=== PATIENT | male | born 1950 | race Hispanic/Latino ===

== ENCOUNTER 2017-02-07 07:26 | Observation (INO) | payer MEDICARE ==
[2017-02-07 09:05] LABS: Alanine Aminotransferase 9 units/L (7-56); Albumin 3.1 g/dL (3.9-5); Albumin/Globulin Ratio 1.1 %; Alkaline Phosphatase 52 units/L (35-129); Anion Gap 15 mmol/L; BUN/Creatinine Ratio 8.88; Bilirubin,Total 0.4 mg/dL (0.1-1.2); Blood Urea Nitrogen 8 mg/dL (9-20); Calcium 8.6 mg/dL (8.4-10.2); Carbon Dioxide 23 mmol/L (22-30); Chloride 106.2 mmol/L (98-107); Glucose 95 mg/dL (75-100); Potassium 3.9 mmol/L (3.6-5.0); Sodium 140 mmol/L (137-145)
[2017-02-07 09:06] LABS: Basophils % (Auto) 0.4 % (0.0-1.8); Hematocrit 36.9 % (35.5-45.6); Hemoglobin 12.2 gm/dl (11.8-15.2); Mean Corpuscular HGB Conc 33 % (32-34); Mean Corpuscular Hemoglobin 30 pg (28-32); Mean Corpuscular Volume 92 fl (84-94); Platelet Count 206 K/mm3 (140-440); Red Blood Count 4.03 M/mm3 (3.65-5.03); Red Cell Distribution Width 13.7 % (13.2-15.2); White Blood Count 9.1 K/mm3 (4.5-11.0)
[2017-02-07 09:17] LABS: INR 0.97 (0.87-1.13)
[2017-02-07 09:18] LABS: Partial Thromboplastin Time 34.3 Sec. (24.2-36.6)
[2017-02-07 09:23] LABS: Bilirubin,Direct < 0.2 mg/dL (0-0.2)
[2017-02-07] MEDS ORDERED: HEPARIN 10,000 UNITS/10 ML ONE (12:34)
[2017-02-07] MEDS ORDERED: HEPARIN/NS 5000 UNIT/500ML(CATH LAB) 500 ML IR ONE (12:38)
[2017-02-07] MEDS ORDERED: XYLOCAINE 1%/ EPI 1:100,000 INFILTRATI ONE (12:38)
--- NOTE | 2017-02-07 12:43 | Emergency Department Report ---
ED General Adult HPI - General Chief complaint: Pain General Stated complaint: PAIN IN GROIN Time Seen by Provider: 02/07/17 07:52 Source: patient, EMS Mode of arrival: Stretcher Limitations: No Limitations - History of Present Illness Initial comments: The patient is a 66 year old man who is status post PCI to the left diagonal artery by Dr. Guillaume on 02/04/2017. On 02/06/2017 he was found to have a right profunda fistula that was stented and occluded by Dr. Andres. This morning he awoke with swelling of his left groin. The patient presume this was secondary to a hernia. He is status post herniorrhaphy in the past. However upon examination it was clear that his left groin swelling was likely due to a pseudoaneurysm. Therefore an emergency arterial Doppler was ordered. The patient was not complaining of any significant pain. He stated that he didn't have a bowel movement today but he had not been nauseated or vomiting he denied fever or chills. He denied shortness breath or general weakness. -: Gradual, hour(s) Location: left (groin but not complaining of pain just swelling) Radiation: non-radiation Severity scale (0 -10): 0 Consistency: constant Improves with: none Worsens with: none Associated Symptoms: denies other symptoms - Related Data Previous Rx's Medication Instructions Recorded Last Taken Type Aspirin EC [Aspirin Enteric Coated 81 mg PO QDAY #30 tablet. 02/06/17 Unknown Rx TAB] AtorvaSTATin [Lipitor] 40 mg PO QHS #30 tablet 02/06/17 Unknown Rx Azithromycin [Zithromax TAB] 250 mg PO QDAY #3 tablet 02/06/17 Unknown Rx Clopidogrel [Plavix] 75 mg PO QDAY #30 tablet 02/06/17 Unknown Rx Lisinopril [Zestril TAB] 5 mg PO QDAY #30 tablet 02/06/17 Unknown Rx Metoprolol Xl [Metoprolol 25 mg PO QDAY #30 tablet 02/06/17 Unknown Rx SUCCINATE ER TAB] Pantoprazole [Protonix TAB] 40 mg PO QDAY #30 tablet 02/06/17 Unknown Rx Allergies Allergy/AdvReac Type Severity Reaction Status Date / Time erythromycin base Allergy Hives Verified 02/04/17 09:38 ED Review of Systems ROS: Stated complaint: PAIN IN GROIN Other details as noted in HPI Constitutional: denies: chills, fever Eyes: denies: eye pain, eye discharge, vision change ENT: denies: ear pain, throat pain Respiratory: denies: cough, shortness of breath, wheezing Cardiovascular: denies: chest pain, palpitations Endocrine: no symptoms reported Gastrointestinal: denies: abdominal pain, nausea, diarrhea Genitourinary: denies: urgency, dysuria Musculoskeletal: as per HPI. denies: back pain, joint swelling, arthralgia Skin: denies: rash, lesions Neurological: denies: headache, weakness, paresthesias Psychiatric: denies: anxiety, depression Hematological/Lymphatic: denies: easy bleeding, easy bruising ED Past Medical Hx - Past Medical History Previous Medical History?: Yes Hx Hypertension: Yes Hx Heart Attack/AMI: Yes Hx GERD: Yes Hx Headaches / Migraines: Yes Hx Kidney Stones: Yes Hx Asthma: Yes Additional medical history: prostate, CAD with mid diagonal heart stent - Surgical History Past Surgical History?: Yes Hx Coronary Stent: Yes Additional Surgical History: 3 hernia repairs - Social History Smoking Status: Current Every Day Smoker Substance Use Type: Alcohol, Prescribed - Medications Home Medications: Home Medications Medication Instructions Recorded Confirmed Last Taken Type Aspirin EC [Aspirin Enteric Coated 81 mg PO QDAY #30 tablet. 02/06/17 Unknown Rx TAB] AtorvaSTATin [Lipitor] 40 mg PO QHS #30 tablet 02/06/17 02/07/17 Unknown Rx Azithromycin [Zithromax TAB] 250 mg PO QDAY #3 tablet 02/06/17 02/07/17 Unknown Rx Clopidogrel [Plavix] 75 mg PO QDAY #30 tablet 02/06/17 02/07/17 Unknown Rx Lisinopril [Zestril TAB] 5 mg PO QDAY #30 tablet 02/06/17 02/07/17 Unknown Rx Metoprolol Xl [Metoprolol 25 mg PO QDAY #30 tablet 02/06/17 02/07/17 Unknown Rx SUCCINATE ER TAB] Pantoprazole [Protonix TAB] 40 mg PO QDAY #30 tablet 02/06/17 02/07/17 Unknown Rx ED Physical Exam - General Limitations: No Limitations General appearance: alert, in no apparent distress - Head Head exam: Present: atraumatic, normocephalic - Eye Eye exam: Present: normal appearance. Absent: scleral icterus, conjunctival injection - ENT ENT exam: Present: normal exam, mucous membranes moist - Neck Neck exam: Present: normal inspection. Absent: tenderness - Respiratory Respiratory exam: Present: normal lung sounds bilaterally. Absent: respiratory distress - Cardiovascular Cardiovascular Exam: Present: regular rate, normal rhythm. Absent: systolic murmur, diastolic murmur, rubs, gallop - GI/Abdominal GI/Abdominal exam: Present: soft, normal bowel sounds. Absent: distended, tenderness, guarding, rebound, rigid - Rectal Rectal exam: Present: deferred - Extremities Exam Extremities exam: Present: other (the right groin has a good pulse no thrill and no swelling. Dorsalis pedis and posterior tibial pulses are present bilaterally. There is swelling of the left groin which I believe is consistent with a pseudoaneurysm.) - Back Exam Back exam: Present: normal inspection - Neurological Exam Neurological exam: Present: alert, oriented X3, CN II-XII intact. Absent: motor sensory deficit - Psychiatric Psychiatric exam: Present: normal affect, normal mood - Skin Skin exam: Present: warm, dry, intact, normal color. Absent: rash ED Course Vital Signs 02/07/17 02/07/17 02/07/17 07:37 07:40 07:48 Temperature 98.5 F Pulse Rate 65 60 62 Respiratory 18 12 13 Rate Blood Pressure 156/95 Blood Pressure 145/92 [Left] O2 Sat by Pulse 97 100 98 Oximetry - Reevaluation(s) Reevaluation #1: The spindle carver called me to inform me that there was a large left pseudoaneurysm. VASCULAR LAB.PRELIMINARY REPORT.BLE ARTERIAL DUPLEX DONE. TECHNICALLY DIFFICULT/ LIMITED DUE TO LT.GROIN EDEMA.EVIDENCE OF PSEUDOANEURYSM COMING OUT OF THE LT.EXTERNAL ILIAC ARTERY MEASURING 1.61CM. X1.85 CM. IN DIAMETER.NECK DIFFICULT TO VISUALIZED.MULTIPHASIC WAVEFORMS OBTAINED THROUGHOUT VESSELS INTERROGATED EXCEPT FOR MONOPHASIC WAVEFORMS OBTAINED IN THE LT.ROSALEE AND LT.DPA. 02/07/17 12:45 Dr. Fernandez was informed. Initially he suggested a CTA. However, when he was able to review the study he called in the cath team. The patient remained nothing by mouth and hemodynamically stable in the emergency department. Reevaluation #2: I discussed the admission status of this patient with Dr. Jim. He stated that at the end of the procedure he will decide whether the patient should be observed overnight. 02/07/17 12:48 ED Medical Decision Making - Lab Data Result diagrams: 02/07/17 08:29 02/07/17 08:29 Laboratory Results - last 24 hr 02/07/17 02/07/17 02/07/17 08:29 08:29 08:29 WBC 9.1 RBC 4.03 Hgb 12.2 Hct 36.9 MCV 92 MCH 30 MCHC 33 RDW 13.7 Plt Count 206 Lymph % (Auto) 14.9 [place] % (Auto) 9.1 H Eos % (Auto) 3.0 Baso % (Auto) 0.4 Lymph # 1.4 Gregg # 0.8 Eos # 0.3 Baso # 0.0 Seg Neutrophils % 72.6 H Seg Neutrophils # 6.6 PT 12.8 INR 0.97 APTT 34.3 Sodium 140 Potassium 3.9 Chloride 106.2 Carbon Dioxide 23 Anion Gap 15 BUN 8 L Creatinine 0.9 Estimated GFR > 60 BUN/Creatinine Ratio 8.88 Glucose 95 Calcium 8.6 Total Bilirubin 0.4 Direct Bilirubin < 0.2 AST 24 ALT 9 Alkaline Phosphatase 52 Total Protein 6.0 L Albumin 3.1 L Albumin/Globulin Ratio 1.1 Blood Type Antibody Screen 02/07/17 08:29 WBC RBC Hgb Hct MCV MCH MCHC RDW Plt Count Lymph % (Auto) [place] % (Auto) Eos % (Auto) Baso % (Auto) Lymph # [place] # Eos # Baso # Seg Neutrophils % Seg Neutrophils # PT INR APTT Sodium Potassium Chloride Carbon Dioxide Anion Gap BUN Creatinine Estimated GFR BUN/Creatinine Ratio Glucose Calcium Total Bilirubin Direct Bilirubin AST ALT Alkaline Phosphatase Total Protein Albumin Albumin/Globulin Ratio Blood Type A POSITIVE Antibody Screen Negative - Radiology Data Radiology results: report reviewed Critical care attestation.: If time is entered above; I have spent that time in minutes in the direct care of this critically ill patient, excluding procedure time. ED Disposition Clinical Impression: Pseudoaneurysm of left femoral artery Disposition: OP ADMITTED IP TO THIS HOSP Is pt being admited?: Yes Does the pt Need Aspirin: No (per vascular) Condition: Stable Time of Disposition: 12:48
[2017-02-07] MEDS ORDERED: ANCEF/STERILE WATER 2 GM/20 ML 2 GM/20 ML SYRINGE IV ONE (13:14)
[2017-02-07] MEDS ORDERED: NACL 0.9% 500 ML 500 ML ONE (13:14)
[2017-02-07] MEDS ORDERED: ZOFRAN ONE (13:22)
[2017-02-07] MEDS: SUBLIMAZE ONE ×2 (13:30→13:55)
[2017-02-07] MEDS: VERSED ONE ×2 (13:30→13:55)
[2017-02-07] MEDS ORDERED: NORCO 5/325 PO PRN (14:10)
[2017-02-07] MEDS ORDERED: ZOFRAN IV PRN (14:15)
[2017-02-07] MEDS ORDERED: TYLENOL PO PRN (14:15)
[2017-02-07] MEDS ORDERED: DULCOLAX PR PRN (14:15)
[2017-02-07] MEDS ORDERED: MILK OF MAGNESIA PO PRN (14:15)
--- NOTE | 2017-02-07 14:45 | Operative Report ---
Operative Report Operative Report: Date of procedure: 02/07/2017 Pre-operative diagnosis: 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 Post-operative diagnosis: Same Procedure name(s): 1. Ultrasound-guided of the right common femoral artery access 2. Aortogram. 3. Selective contralateral cannulation of the left common femoral artery. 4. Left lower extremity angiogram. 5. Placement of 10 x 38 Icast stent graft in the left distal external iliac/ proximal common femoral artery. 6. Radiologic supervision and interpretation. 7. Closure of the right common femoral artery with proglide device achieving instant hemostasis. Surgeon: Roque Fernandez MD, RPVI Ice Scraper: None Anesthesia: Local Findings 1. 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 2. Complete exclusion of the aneurysm after the stent placement. 3. No evidence of significant arterial occlusive disease in the aorta or iliac arteries. 4. Patent stent in the profunda. 5. Successful closure of the right common femoral artery with instant hemostasis Disposition: The recovery Indications: Large false aneurysm in the distal external iliac/common proximal right femoral artery. Procedure The patient was brought to the Metal Drill Press Operator and laid on the table in supine position. Right groin was infiltrated with 1% lidocaine under ultrasound guidance the right common femoral artery was successfully accessed using a micropuncture needle. Micropuncture wire was advanced without resistance under fluoroscopic guidance. Micropuncture introducer was placed. The long Bentson wire was advanced into the aorta. The 5 Occ[place] sheath was placed. The Sos Omni flush catheter was placed into the distal infrarenal aorta. Aortogram was performed. The false aneurysm was visualized level of the distal external iliac /proximal common femoral arteries. The contralateral cannulation was achieved using a glide advantage wire and the catheter. The wire was brought down into the SFA. The catheter and a 5 [place]itan sheath were removed and upsized to a 7 x 45 cm sheath. The angiogram was performed. The false aneurysm was marked. An 8 mm balloon was inflated over the area of the aneurysm for 3 minutes. Post- balloon inflation the angiogram showed persistent large false aneurysm. A 10 x 38 Icast stent was placed at the level of the left distal external/common proximal femoral arteries and deployed with balloon inflation. Postplacement the false aneurysm was completely excluded. The sheath was brought back to the level of the right external iliac artery and the angiogram was performed. Patient was a candidate for a closure device. The right common femoral artery was successfully closed using Proglide device. Patient tolerated procedure well was transferred to the recovery room in stable condition.
--- NOTE | 2017-02-07 14:51 | History and Physical Report ---
History of Present Illness Date of examination: 02/07/17 History of present illness: 66-year-old gentleman admitted to the hospital with a large swelling above the left groin. His ultrasound showed a large false aneurysm at the level of the external iliac artery. Patient had undergone a cardiac catheterization last week for acute infarct. The access was through the right groin. Patient developed an AV fistula from the profunda to a common femoral vein. The fistula was repaired endovascularly but Dr. Andres by placing a stent in the profunda. He used a left groin for access. Patient was discharged without incident. He returns today with a new problem. Past History Past Medical History: acute [place] (recent), CAD, hypertension, hyperlipidemia Past Surgical History: Other (cardiac catheterization via right groin, endovascular repair of right groin AV fistula in her left groin approach) Social history: smoking Family history: no significant family history Medications and Allergies Allergies Allergy/AdvReac Type Severity Reaction Status Date / Time erythromycin base Allergy Hives Verified 02/04/17 09:38 Home Medications Medication Instructions Recorded Confirmed Last Taken Type Aspirin EC [Aspirin Enteric Coated 81 mg PO QDAY #30 tablet. 02/06/17 Unknown Rx TAB] AtorvaSTATin [Lipitor] 40 mg PO QHS #30 tablet 02/06/17 02/07/17 Unknown Rx Azithromycin [Zithromax TAB] 250 mg PO QDAY #3 tablet 02/06/17 02/07/17 Unknown Rx Clopidogrel [Plavix] 75 mg PO QDAY #30 tablet 02/06/17 02/07/17 Unknown Rx Lisinopril [Zestril TAB] 5 mg PO QDAY #30 tablet 02/06/17 02/07/17 Unknown Rx Metoprolol Xl [Metoprolol 25 mg PO QDAY #30 tablet 02/06/17 02/07/17 Unknown Rx SUCCINATE ER TAB] Pantoprazole [Protonix TAB] 40 mg PO QDAY #30 tablet 02/06/17 02/07/17 Unknown Rx Active Meds: Active Medications Acetaminophen (Tylenol) 650 mg PO Q4H PRN PRN Reason: Pain MILD(1-3)/Fever >100.5/TALAVERA Acetaminophen/Hydrocodone Bitart ([place] 5/325) 1 each PO Q4H PRN PRN Reason: Pain, Moderate (4-6) Aspirin (Halfprin Ec) 81 mg PO QDAY JUAN A Atorvastatin Calcium (Lipitor) 40 mg PO QHS JUAN A Bisacodyl (Dulcolax) 10 mg [place] QDAY PRN PRN Reason: Constipation unrelieved by MOM Clopidogrel Bisulfate (Plavix) 75 mg PO QDAY [facility] Sodium Chloride (Nacl 0.45% 1000 Ml) 1,000 mls @ 75 mls/hr IV DIRECT JUAN A Stop: 02/08/17 04:19 Lisinopril (Zestril) 5 mg PO QDAY JUAN A Magnesium Hydroxide (Milk Of Magnesia) 30 ml PO Q4H PRN PRN Reason: Constipation Metoprolol Succinate (Toprol Xl) 25 mg PO QDAY [facility] Ondansetron HCl (Zofran) 4 mg IV Q8H PRN PRN Reason: N/V unrelieved by Reglan Pantoprazole Sodium (Protonix) 40 mg PO QDAY [facility] Review of Systems Cardiovascular: no chest pain, no orthopnea Respiratory: no cough, no congestion Gastrointestinal: nausea Genitourinary Male: no dysuria Integumentary: deferred Hematologic/Lymphatic: easy bruising Exam - Constitutional Vitals: Temp Pulse Resp BP Pulse Ox 98.5 F 59 L 13 162/78 97 02/07/17 07:37 02/07/17 09:41 02/07/17 09:41 02/07/17 12:40 02/07/17 12:40 General appearance: Present: mild distress - EENT Eyes: Present: PERRL - Neck Neck: Present: supple - Respiratory Respiratory effort: normal Respiratory: bilateral: CTA - Cardiovascular Rhythm: regular - Extremities Extremities: no ischemia Extremity abnormal: other ( swelling at the left groin) - Abdominal General gastrointestinal: Present: deferred - Rectal Rectal Exam: deferred Results - Labs CBC & Chem 7: 02/07/17 08:29 02/07/17 08:29 Labs: Abnormal lab results 02/07/17 02/07/17 Range/Units 08:29 08:29 [place] % (Auto) 9.1 H (0.0-7.3) % Seg Neutrophils % 72.6 H (40.0-70.0) % BUN 8 L (9-20) mg/dL Total Protein 6.0 L (6.3-8.2) g/dL Albumin 3.1 L (3.9-5) g/dL Assessment and Plan Large false aneurysm diagnosed by ultrasound at the level of the distal left external iliac/proximal left common femoral artery. I believe this false aneurysm is too high to inject safely. It would require stent graft to exclude. Plan: We'll take the patient to the [employer] [facility] Operator for a stent placement. We'll admitted postoperatively for observation. We'll consult cardiology and hospitalist for cardiac and medical management. Repeat ultrasound in a.m.
--- NOTE | 2017-02-07 14:58 | Vascular Lab Report ---
LOWER EXTREMITY ARTERIAL DUPLEX: REASON FOR EXAM: Left groin swelling. COMMENTS ON THE RIGHT: Triphasic waveforms are seen proximally. Biphasic waveforms are seen distally. No significant velocity gradients are identified. No focal significant plaque is identified. Findings are consistent with normal perfusion. Findings are consistent with the ability to heal distal wounds. COMMENTS ON THE LEFT: Biphasic waveforms are seen proximally. Biphasic waveforms are seen distally. No significant velocity gradients are identified. A large false aneurysm is noted at the level of the external iliac artery.. Findings are consistent with normal perfusion. Findings are consistent with the ability to heal distal wounds. IMPRESSION: RIGHT: Essentially normal arterial flow. LEFT:False aneurysm at the level of the external iliac artery..
[2017-02-07] MEDS ORDERED: NACL 0.45% 1000 ML 1,000 ML IV SCH (15:00)
--- NOTE | 2017-02-07 15:02 | Vascular Lab Report ---
MISCELLANEOUS VESSEL IDENTIFICATION: COMMENTS ON THE SCAN: The right common femoral artery was identified and under real-time ultrasound guidance was cannulated. IMPRESSION: Successful ultrasound guided arterial cannulation.
--- NOTE | 2017-02-07 15:49 | Consultation ---
History of Present Illness - Reason for Consult Consult date: 02/07/17 Requesting physician: JENNIFER WIGGINS - History of Present Illness 66 YO Male with HTN, CAD, HLD, CA, PVD presents for evaluation. Pt states that he has experienced pain and discomfort in his left groin for the past 3 days. Pt symptoms have gotten progressively worse over the past 12 hours., Pt denies fever, chills, CP, palpitations, NVD, recent ill contacts, prolonged immobility/ travel, individua/family history of DVt/PE, productive cough, hemoptysis,or skin rashes. Consult placed for medical management. Pt seen and evaluated in ED and found to have Left groin false aneurysm. Vascular surgery team consulted. Past History Past Medical History: acute [place] (recent), CAD, hypertension, hyperlipidemia Past Surgical History: Other (cardiac catheterization via right groin, endovascular repair of right groin AV fistula in her left groin approach) Social history: smoking Family history: no significant family history Medications and Allergies Allergies Allergy/AdvReac Type Severity Reaction Status Date / Time erythromycin base Allergy Hives Verified 02/04/17 09:38 Home Medications Medication Instructions Recorded Confirmed Last Taken Type Aspirin EC [Aspirin Enteric Coated 81 mg PO QDAY #30 tablet. 02/06/17 Unknown Rx TAB] AtorvaSTATin [Lipitor] 40 mg PO QHS #30 tablet 02/06/17 02/07/17 Unknown Rx Azithromycin [Zithromax TAB] 250 mg PO QDAY #3 tablet 02/06/17 02/07/17 Unknown Rx Clopidogrel [Plavix] 75 mg PO QDAY #30 tablet 02/06/17 02/07/17 Unknown Rx Lisinopril [Zestril TAB] 5 mg PO QDAY #30 tablet 02/06/17 02/07/17 Unknown Rx Metoprolol Xl [Metoprolol 25 mg PO QDAY #30 tablet 02/06/17 02/07/17 Unknown Rx SUCCINATE ER TAB] Pantoprazole [Protonix TAB] 40 mg PO QDAY #30 tablet 02/06/17 02/07/17 Unknown Rx Active Meds: Active Medications Acetaminophen (Tylenol) 650 mg PO Q4H PRN PRN Reason: Pain MILD(1-3)/Fever >100.5/[place] Acetaminophen/Hydrocodone Bitart ([place] 5/325) 1 each PO Q4H PRN PRN Reason: Pain, Moderate (4-6) Aspirin (Halfprin Ec) 81 mg PO QDAY JUAN A Atorvastatin Calcium (Lipitor) 40 mg PO QHS JUAN A Bisacodyl (Dulcolax) 10 mg [place] QDAY PRN PRN Reason: Constipation unrelieved by MOM Clopidogrel Bisulfate (Plavix) 75 mg PO QDAY [facility] Sodium Chloride (Nacl 0.45% 1000 Ml) 1,000 mls @ 75 mls/hr IV DIRECT JUAN A Stop: 02/08/17 04:19 Lisinopril (Zestril) 5 mg PO QDAY JUAN A Magnesium Hydroxide (Milk Of Magnesia) 30 ml PO Q4H PRN PRN Reason: Constipation Metoprolol Succinate (Toprol Xl) 25 mg PO QDAY JUAN A Ondansetron HCl (Zofran) 4 mg IV Q8H PRN PRN Reason: N/V unrelieved by Reglan Pantoprazole Sodium (Protonix) 40 mg PO QDAY [facility] Exam - Constitutional Vitals: Temp Pulse Resp BP Pulse Ox 98.5 F 59 L 13 162/78 97 02/07/17 07:37 02/07/17 09:41 02/07/17 09:41 02/07/17 12:40 02/07/17 12:40 Results - Labs CBC & Chem 7: 02/07/17 08:29 02/07/17 08:29 Labs: Abnormal lab results 02/07/17 02/07/17 Range/Units 08:29 08:29 [place] % (Auto) 9.1 H (0.0-7.3) % Seg Neutrophils % 72.6 H (40.0-70.0) % BUN 8 L (9-20) mg/dL Total Protein 6.0 L (6.3-8.2) g/dL Albumin 3.1 L (3.9-5) g/dL Assessment and Plan - Patient Problems (1) HTN (hypertension) Current Visit: Yes Status: Acute Qualifiers: Hypertension type: H Plan to address problem: monitor BP q shift, continue current therapy, (2) HLD (hyperlipidemia) Current Visit: Yes Status: Acute Qualifiers: Hyperlipidemia type: H Plan to address problem: continue statin, (3) PVD (peripheral vascular disease) Current Visit: Yes Status: Acute Plan to address problem: S/P vascular intervention, continue current therapy as per vascular service. (4) Pseudoaneurysm of left femoral artery Current Visit: Yes Status: Acute Plan to address problem: S/P vascular surgery repair, dressing in place, CDI. (5) DVT prophylaxis Current Visit: Yes Status: Acute
[2017-02-08 07:37] LABS: Basophils % (Auto) 0.6 % (0.0-1.8); Eosinophils % (Auto) 5.2 % (0.0-4.3); Hematocrit 33.7 % (35.5-45.6); Hemoglobin 11.2 gm/dl (11.8-15.2); Mean Corpuscular HGB Conc 33 % (32-34); Mean Corpuscular Hemoglobin 30 pg (28-32); Mean Corpuscular Volume 91 fl (84-94); Platelet Count 215 K/mm3 (140-440); Red Blood Count 3.69 M/mm3 (3.65-5.03); Red Cell Distribution Width 13.9 % (13.2-15.2); White Blood Count 8.1 K/mm3 (4.5-11.0)
[2017-02-08 07:58] LABS: Anion Gap 14 mmol/L; BUN/Creatinine Ratio 7.77; Blood Urea Nitrogen 7 mg/dL (9-20); Calcium 8.2 mg/dL (8.4-10.2); Carbon Dioxide 24 mmol/L (22-30); Chloride 103.9 mmol/L (98-107); Glucose 98 mg/dL (75-100); Potassium 4.1 mmol/L (3.6-5.0); Sodium 138 mmol/L (137-145)
[2017-02-08 08:09] VITALS: BP 124/78
[2017-02-08] MEDS ORDERED: PLAVIX PO SCH (10:00)
[2017-02-08] MEDS ORDERED: TOPROL XL PO SCH (10:00)
[2017-02-08] MEDS ORDERED: PROTONIX PO SCH (10:00)
[2017-02-08] MEDS ORDERED: HALFPRIN EC PO SCH (10:00)
[2017-02-08] MEDS ORDERED: ZESTRIL PO SCH (10:00)
--- NOTE | 2017-02-08 10:58 | Short Stay Summary ---
Short Stay Documentation - History H&P: dictated Past Medical History: acute [place] (recent), CAD, hypertension, hyperlipidemia Past Surgical History: Other (cardiac catheterization via right groin, endovascular repair of right groin AV fistula in her left groin approach) Social history: smoking - Allergies and Medications Current Medications: Allergies erythromycin base Allergy (Verified 02/04/17 09:38) Hives Home Medications Medication Instructions Recorded Confirmed Last Taken Type Aspirin EC [Aspirin Enteric Coated 81 mg PO QDAY #30 tablet.dr 02/06/17 Unknown Rx TAB] AtorvaSTATin [Lipitor] 40 mg PO QHS #30 tablet 02/06/17 02/07/17 Unknown Rx Azithromycin [Zithromax TAB] 250 mg PO QDAY #3 tablet 02/06/17 02/07/17 Unknown Rx Clopidogrel [Plavix] 75 mg PO QDAY #30 tablet 02/06/17 02/07/17 Unknown Rx Lisinopril [Zestril TAB] 5 mg PO QDAY #30 tablet 02/06/17 02/07/17 Unknown Rx Metoprolol Xl [Metoprolol 25 mg PO QDAY #30 tablet 02/06/17 02/07/17 Unknown Rx SUCCINATE ER TAB] Pantoprazole [Protonix TAB] 40 mg PO QDAY #30 tablet 02/06/17 02/07/17 Unknown Rx Active Medications Acetaminophen (Tylenol) 650 mg PO Q4H PRN PRN Reason: Pain MILD(1-3)/Fever >100.5/[place] Acetaminophen/Hydrocodone Bitart ([place] 5/325) 1 each PO Q4H PRN PRN Reason: Pain, Moderate (4-6) Aspirin (Halfprin Ec) 81 mg PO QDAY [facility] Last Admin: 02/08/17 09:40 Dose: 81 mg Atorvastatin Calcium (Lipitor) 40 mg PO QHS [facility] Last Admin: 02/07/17 21:18 Dose: 40 mg Bisacodyl (Dulcolax) 10 mg [place] QDAY PRN PRN Reason: Constipation unrelieved by MOM Clopidogrel Bisulfate (Plavix) 75 mg PO QDAY [facility] Last Admin: 02/08/17 09:41 Dose: 75 mg Lisinopril (Zestril) 5 mg PO QDAY [facility] Last Admin: 02/08/17 09:40 Dose: 5 mg Magnesium Hydroxide (Milk Of Magnesia) 30 ml PO Q4H PRN PRN Reason: Constipation Metoprolol Succinate (Toprol Xl) 25 mg PO QDAY [facility] Last Admin: 02/08/17 09:39 Dose: 25 mg Ondansetron HCl (Zofran) 4 mg IV Q8H PRN PRN Reason: N/V unrelieved by Reglan Pantoprazole Sodium (Protonix) 40 mg PO QDAY [facility] Last Admin: 02/08/17 09:41 Dose: 40 mg - Physical exam Extremities: no ischemia - Brief post op/procedure progress note Procedure: Pre-operative diagnosis: 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 Post-operative diagnosis: Same Procedure name(s): 1. Ultrasound-guided of the right common femoral artery access 2. Aortogram. 3. Selective contralateral cannulation of the left common femoral artery. 4. Left lower extremity angiogram. 5. Placement of 10 x 38 Icast stent graft in the left distal external iliac/ proximal common femoral artery. 6. Radiologic supervision and interpretation. 7. Closure of the right common femoral artery with proglide device achieving instant hemostasis. Surgeon: Roque Fernandez MD, RPVI Building Maintenance Technician: None Anesthesia: Local Findings 1. 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 2. Complete exclusion of the aneurysm after the stent placement. 3. No evidence of significant arterial occlusive disease in the aorta or iliac arteries. 4. Patent stent in the prof[place]. 5. Successful closure of the right common femoral artery with instant hemostasis Disposition: The recover - Disposition Condition at discharge: Good Disposition: DISCHARGED TO HOME OR SELFCARE Short Stay Discharge Plan Activity: advance as tolerated, other (no heavy lifting for 2 weeks) Weight Bearing Status: Full Weight Bearing Diet: regular Wound: open to air Additional Instructions: Follow-up with [facility] vascular as scheduled Follow up with: PRIMARY CAREMD [Primary Care Provider] - 3-5 Days
--- NOTE | 2017-02-08 11:27 | Progress Note ---
Assessment and Plan Assessment and plan: Pseudoaneurysm distal external iliac artery, s/p angiogram and stent placement. Procedure was done yesterday and he was monitored overnight. Likely going home today. Coronary artery disease status post myocardial infarction. Stable. No chest pain Hypertension. BP stable. Hyperlipidemia Full CODE STATUS History Interval history: no pain on legs Hospitalist Physical - Physical exam Narrative exam: General: Not in acute distress HEENT: Normocephalic, atraumatic Neck: supple, no JVD Lungs: Clear to auscultation bilaterally, no crackles, no wheezes Heart S1-S2 regular, no murmurs rubs or gallop, Abdomen: soft, non tender,non-distended, normal bowel sounds Ext: No edema, clubbing or cyanosis, dressing over both groins. Neuro: Awake, alert.oriented x 3, no focal neurological signs, Psych: normal mood - Constitutional Vitals: Temp Pulse Resp BP Pulse Ox 98.5 F 78 18 124/78 94 02/08/17 08:08 02/08/17 09:40 02/08/17 08:08 02/08/17 08:08 02/08/17 08:08 General appearance: Present: mild distress Results - Labs CBC & Chem 7: 02/08/17 06:54 02/08/17 06:54 Labs: Laboratory Last Values WBC 8.1 K/mm3 (4.5-11.0) 02/08/17 06:54 RBC 3.69 M/mm3 (3.65-5.03) 02/08/17 06:54 Hgb 11.2 gm/dl (11.8-15.2) L 02/08/17 06:54 Hct 33.7 % (35.5-45.6) L 02/08/17 06:54 MCV 91 fl (84-94) 02/08/17 06:54 MCH 30 pg (28-32) 02/08/17 06:54 MCHC 33 % (32-34) 02/08/17 06:54 RDW 13.9 % (13.2-15.2) 02/08/17 06:54 Plt Count 215 K/mm3 (140-440) 02/08/17 06:54 Lymph % (Auto) 22.0 % (13.4-35.0) 02/08/17 06:54 [place] % (Auto) 11.2 % (0.0-7.3) H 02/08/17 06:54 Eos % (Auto) 5.2 % (0.0-4.3) H 02/08/17 06:54 Baso % (Auto) 0.6 % (0.0-1.8) 02/08/17 06:54 Lymph # 1.8 K/mm3 (1.2-5.4) 02/08/17 06:54 [place] # 0.9 K/mm3 (0.0-0.8) H 02/08/17 06:54 Eos # 0.4 K/mm3 (0.0-0.4) 02/08/17 06:54 Baso # 0.1 K/mm3 (0.0-0.1) 02/08/17 06:54 Seg Neutrophils % 61.0 % (40.0-70.0) 02/08/17 06:54 Seg Neutrophils # 4.9 K/mm3 (1.8-7.7) 02/08/17 06:54 PT 12.8 Sec. (12.2-14.9) 02/07/17 08:29 INR 0.97 (0.87-1.13) 02/07/17 08:29 APTT 34.3 Sec. (24.2-36.6) 02/07/17 08:29 Sodium 138 mmol/L (137-145) 02/08/17 06:54 Potassium 4.1 mmol/L (3.6-5.0) 02/08/17 06:54 Chloride 103.9 mmol/L (98-107) 02/08/17 06:54 Carbon Dioxide 24 mmol/L (22-30) 02/08/17 06:54 Anion Gap 14 mmol/L 02/08/17 06:54 BUN 7 mg/dL (9-20) L 02/08/17 06:54 Creatinine 0.9 mg/dL (0.8-1.5) 02/08/17 06:54 Estimated GFR > 60 ml/min 02/08/17 06:54 BUN/Creatinine Ratio 7.77 % 02/08/17 06:54 Glucose 98 mg/dL (75-100) 02/08/17 06:54 Calcium 8.2 mg/dL (8.4-10.2) L 02/08/17 06:54 Total Bilirubin 0.4 mg/dL (0.1-1.2) 02/07/17 08:29 Direct Bilirubin < 0.2 mg/dL (0-0.2) 02/07/17 08:29 AST 24 units/L (5-40) 02/07/17 08:29 ALT 9 units/L (7-56) 02/07/17 08:29 Alkaline Phosphatase 52 units/L (35-129) 02/07/17 08:29 Total Protein 6.0 g/dL (6.3-8.2) L 02/07/17 08:29 Albumin 3.1 g/dL (3.9-5) L 02/07/17 08:29 Albumin/Globulin Ratio 1.1 % 02/07/17 08:29 Blood Type A POSITIVE 02/07/17 08:29 Antibody Screen Negative 02/07/17 08:29
--- NOTE | 2017-02-08 12:07 | Consultation ---
History of Present Illness Consult date: 02/08/17 Consult reason: other (CAD) History of present illness: 66-year-old male who is presented with swelling in the left groin. Patient had initially presented with acute lateral wall myocardial infarction and emergency cardiac catheterization and stenting of the mid diagonal branch was done echocardiogram at that time showed global hypokinesis of the left ventricle with an ejection fraction of 40-45%. Patient however developed a pseudoaneurysm this was repaired an approach from the right groin. Patient was then discharged only to present to the emergency room with a swelling of the left groin which needed repair approached this time was drawn through the left groin. He denies any cardiac symptoms. Past History Past Medical History: acute [place] (recent), CAD, hypertension, hyperlipidemia Past Surgical History: Other (cardiac catheterization via right groin, endovascular repair of right groin AV fistula in her left groin approach) Social history: , smoking Family history: no significant family history Medications and Allergies Allergies Allergy/AdvReac Type Severity Reaction Status Date / Time erythromycin base Allergy Hives Verified 02/04/17 09:38 Home Medications Medication Instructions Recorded Confirmed Last Taken Type Aspirin EC [Aspirin Enteric Coated 81 mg PO QDAY #30 tablet. 02/06/17 Unknown Rx TAB] AtorvaSTATin [Lipitor] 40 mg PO QHS #30 tablet 02/06/17 02/07/17 Unknown Rx Azithromycin [Zithromax TAB] 250 mg PO QDAY #3 tablet 02/06/17 02/07/17 Unknown Rx Clopidogrel [Plavix] 75 mg PO QDAY #30 tablet 02/06/17 02/07/17 Unknown Rx Lisinopril [Zestril TAB] 5 mg PO QDAY #30 tablet 02/06/17 02/07/17 Unknown Rx Metoprolol Xl [Metoprolol 25 mg PO QDAY #30 tablet 02/06/17 02/07/17 Unknown Rx SUCCINATE ER TAB] Pantoprazole [Protonix TAB] 40 mg PO QDAY #30 tablet 02/06/17 02/07/17 Unknown Rx Active Meds: Active Medications Acetaminophen (Tylenol) 650 mg PO Q4H PRN PRN Reason: Pain MILD(1-3)/Fever >100.5/[place] Acetaminophen/Hydrocodone Bitart ([place] 5/325) 1 each PO Q4H PRN PRN Reason: Pain, Moderate (4-6) Aspirin (Halfprin Ec) 81 mg PO QDAY [facility] Last Admin: 02/08/17 09:40 Dose: 81 mg Atorvastatin Calcium (Lipitor) 40 mg PO QHS [facility] Last Admin: 02/07/17 21:18 Dose: 40 mg Bisacodyl (Dulcolax) 10 mg [place] QDAY PRN PRN Reason: Constipation unrelieved by MOM Clopidogrel Bisulfate (Plavix) 75 mg PO QDAY [facility] Last Admin: 02/08/17 09:41 Dose: 75 mg Lisinopril (Zestril) 5 mg PO QDAY [facility] Last Admin: 02/08/17 09:40 Dose: 5 mg Magnesium Hydroxide (Milk Of Magnesia) 30 ml PO Q4H PRN PRN Reason: Constipation Metoprolol Succinate (Toprol Xl) 25 mg PO QDAY [facility] Last Admin: 02/08/17 09:39 Dose: 25 mg Ondansetron HCl (Zofran) 4 mg IV Q8H PRN PRN Reason: N/V unrelieved by Reglan Pantoprazole Sodium (Protonix) 40 mg PO QDAY [facility] Last Admin: 02/08/17 09:41 Dose: 40 mg Review of Systems Musculoskeletal: other (pain right grion) Physical Examination Vital Signs Temp Pulse Resp BP Pulse Ox 98.5 F 65 18 156/95 97 02/07/17 07:37 02/07/17 07:37 02/07/17 07:37 02/07/17 07:37 02/07/17 07:37 General appearance: no acute distress, well-nourished HEENT: Positive: PERRL, Mucus Membranes Moist Neck: Positive: neck supple, trachea midline Cardiac: Positive: Reg Rate and Rhythm, S1/S2. Negative: Audible Murmur Lungs: Positive: clear to auscultation, Normal Breath Sounds Neuro: Positive: Grossly Intact Abdomen: Positive: Soft, Active Bowel Sounds. Negative: Tender, Distended Male genitourinary: Positive: normal Skin: Positive: Clear Incision: Cardiac Cath Site Musculoskeletal: No Pain, Normal Range of Motion Extremities: Present: normal, Other (surgical dressing of right and left grions) . Absent: edema Results 02/08/17 06:54 02/08/17 06:54 CBC 02/08/17 Range/Units 06:54 WBC 8.1 (4.5-11.0) K/mm3 RBC 3.69 (3.65-5.03) M/mm3 Hgb 11.2 L (11.8-15.2) gm/dl Hct 33.7 L (35.5-45.6) % Plt Count 215 (140-440) K/mm3 Lymph # 1.8 (1.2-5.4) K/mm3 [place] # 0.9 H (0.0-0.8) K/mm3 Eos # 0.4 (0.0-0.4) K/mm3 Baso # 0.1 (0.0-0.1) K/mm3 Comprehensive Metabolic Panel 02/08/17 Range/Units 06:54 Sodium 138 (137-145) mmol/L Potassium 4.1 (3.6-5.0) mmol/L Chloride 103.9 (98-107) mmol/L Carbon Dioxide 24 (22-30) mmol/L BUN 7 L (9-20) mg/dL Creatinine 0.9 (0.8-1.5) mg/dL Glucose 98 (75-100) mg/dL Calcium 8.2 L (8.4-10.2) mg/dL Assessment and Plan 1. Status post repair of left groin pseudoaneurysm. 2. Previous repair of right groin pseudoaneurysm 3. Coronary artery disease status post recent ST elevation [place] 4. Status post cardiac catheterization and stent placement in the diagonal branch of the LAD. Plan. Cardiac-mobley stable continue antiplatelet therapy especially Plavix.
--- NOTE | 2017-02-10 09:43 | Vascular Lab Report ---
LOWER EXTREMITY ARTERIAL DUPLEX: REASON FOR EXAM: Status post left false aneurysm repair with a stent. COMMENTS ON THE RIGHT: Triphasic waveforms are seen proximally. Triphasic waveforms are seen distally. No significant velocity gradients are identified. No focal significant plaque is identified. Findings are consistent with normal perfusion. Findings are consistent with the ability to heal distal wounds. No evidence of false aneurysm or AV fistula in the right groin. COMMENTS ON THE LEFT: Triphasic waveforms are seen proximally. Triphasic waveforms are seen distally. No significant velocity gradients are identified. No focal significant plaque is identified. Findings are consistent with normal perfusion. Findings are consistent with the ability to heal distal wounds. No evidence of false aneurysm in the left groin. Large hematoma is noted without flow in the IMPRESSION: RIGHT: Essentially normal arterial flow. LEFT:Essentially normal arterial flow. No evidence of false aneurysm or AV fistulas bilaterally.
== END 2017-02-08 14:19 | disposition home or self-care (01) ==
LOC: ED 07:26 → CATH 07:26 → EDSTATUS 13:18 → 4A 14:15
PROVIDERS: ADMIT Surgery Vascular Surgery; ATTEND Surgery Vascular Surgery
DX: I72.4 Aneurysm of artery of lower extremity (principal); I21.3 ST elevation (STEMI) myocardial infarction of unspecified site; I25.10 Atherosclerotic heart disease of native coronary artery without angina pectoris; I10 Essential (primary) hypertension; E78.5 Hyperlipidemia, unspecified; I73.9 Peripheral vascular disease, unspecified; Z98.890 Other specified postprocedural states
CPT/HCPCS: 36415; 37221; 75625; 75716; 76937; 80048; 80074; 85025; 85610; 85730; 86850; 86900; 86901; 93925; A9270; C1725; C1760; C1769; C1874; C1887; G0378; J0690; J1644; J2250; J2405; J3010; J7040; 75710; Q9967

== ENCOUNTER 2017-07-27 20:25 | Emergency (ER) | payer MEDICARE, OTHER ==
[2017-07-27 20:45] VITALS: BP 176/91
[2017-07-27 21:14] LABS: Basophils % (Auto) 1.1 % (0.0-1.8); Eosinophils % (Auto) 4.3 % (0.0-4.3); Hematocrit 42.8 % (35.5-45.6); Hemoglobin 14.8 gm/dl (11.8-15.2); Mean Corpuscular HGB Conc 35 % (32-34); Mean Corpuscular Hemoglobin 31 pg (28-32); Mean Corpuscular Volume 90 fl (84-94); Platelet Count 279 K/mm3 (140-440); Red Blood Count 4.77 M/mm3 (3.65-5.03); Red Cell Distribution Width 14.3 % (13.2-15.2); White Blood Count 9.8 K/mm3 (4.5-11.0)
[2017-07-27 21:23] LABS: INR 0.96 (0.87-1.13)
[2017-07-27 21:28] LABS: Anion Gap 16 mmol/L; BUN/Creatinine Ratio 9; Blood Urea Nitrogen 8 mg/dL (9-20); Calcium 9.2 mg/dL (8.4-10.2); Carbon Dioxide 24 mmol/L (22-30); Chloride 104.6 mmol/L (98-107); Glucose 121 mg/dL (75-100); Sodium 141 mmol/L (137-145)
[2017-07-27 22:56] LABS: Bacteria,Urine 1+ /HPF (Negative); Bilirubin,Urine NEG (Negative); Blood,Urine SM (Negative); Ketones,Urine NEG (Negative); Leukocyte Esterase,Urine NEG (Negative); Nitrite,Urine NEG (Negative); Protein,Urine <15 mg/dL mg/dL (Negative); Urobilinogen,Urine < 2.0 mg/dL (<2.0); WBC,Urine < 1.0 /HPF (0.0-6.0)
== END 2017-07-28 06:49 | disposition left against medical advice (07) ==
LOC: ED 20:25
DX: R07.89 Other chest pain (principal); Z53.21 Procedure and treatment not carried out due to patient leaving prior to being seen by health care provider
CPT/HCPCS: 36415; 80048; 81001; 83036; 84484; 85025; 85610; 93005; 93010